=== PATIENT | female | born 1980 | race Caucasian/White ===

== ENCOUNTER → 2018-10-18 | Day surgery (SDC) | payer OTHER ==
--- NOTE | 2018-10-19 07:35 | OP ---
DATE OF OPERATION: 10/18/2018 PREOPERATIVE DIAGNOSIS: Abnormal right mammography, POSTOPERATIVE DIAGNOSIS: Abnormal right mammography. PROCEDURE: Right stereotactic needle biopsy with clips. SURGEON: Rosalia Villaseñor MD ANESTHESIA: Local. COMPLICATIONS: None. This was a sterile procedure. INDICATIONS FOR PROCEDURE: Patient presented for a screening mammography that noted clusters of microcalcifications slightly superior and posterior to a clip done for an ultrasound-guided needle biopsy in the 9 o'clock location 4 cm from the nipple that was a fibroadenoma. A biopsy of the calcifications was recommended by the radiologist. I reviewed the images and agreed. The procedure of a right stereotactic needle biopsy with clip was discussed and all her questions answered. PROCEDURE IN DETAIL: Patient was brought to [facility] in [place], laid prone on the [place] table. Using the lateral approach, the clip from the prior biopsy was identified. The only calcifications I could really identify was slightly inferior to this, and despite several attempts, no other calcifications were seen. As this appeared to be in the similar area where the calcifications were seen by the radiologist, I elected to do the biopsy of this. A sterile prep was obtained. A target was chosen, there was a positive stroke margin. Using betadine and 1% lidocaine, a 9-gauge Suros device was used to take several cores from this area. Cores showed the calcifications within them. These were handled with usual calcification protocol. A O-shaped clip was deployed in the area. Hemostasis showed with direct pressure. Incision was closed with Steri-Strips. She tolerated the procedure well and left the breast imaging center in good condition. ROSALIA VILLASEÑOR M.D. [id number]
--- NOTE | 2018-10-19 12:49 | PATH ---
Surgical Pathology Report Patient Name: SHANTI COREA [facility]. Rec. #: [id number] /Age/Gender: 1980 (Age: 38) / F Account: [id number] Location: [facility] Taken: 10/18/2018 Received: 10/18/2018 Reported: 10/19/2018 Physicians: Rosalia Stratton M.D. Specimen(s) Received A: RIGHT BREAST SPECIMEN WITH CALCIFICATIONS B: RIGHT BREAST SPECIMEN WITHOUT CALCIFICATIONS Clinical History Mammographic findings: Microcalcification, suspicious Final Diagnosis A. BREAST, RIGHT, WITH CALCIFICATIONS, STEREOTACTIC BIOPSY: BENIGN BREAST TISSUE SHOWING FIBROCYSTIC CHANGES INCLUDING CYSTIC APOCRINE METAPLASIA AND STROMAL FIBROSIS. CALCIFICATIONS ARE PRESENT IN ASSOCIATION WITH CYST CONTENTS. B. BREAST, RIGHT, WITHOUT CALCIFICATIONS, STEREOTACTIC BIOPSY: BENIGN BREAST TISSUE SHOWING FIBROCYSTIC CHANGES INCLUDING CYSTIC APOCRINE METAPLASIA AND STROMAL FIBROSIS. Electronically Signed Meliza Do M.D. Gross Description A. Received in formalin labeled "right breast with calcifications," are 4 marquez-yellow, cylindrical portions of fibroadipose tissue ranging from 0.9-3.4 cm in length and averaging 0.4 cm in diameter. The specimens are submitted in toto in one cassette. B. Received in formalin labeled "right breast without calcifications," are 4 marquez-yellow, cylindrical portions of fibroadipose tissue ranging from 0.7-3.8 cm in length and averaging 0.4 cm in diameter. The specimens are submitted in toto in one cassette. Time to formalin fixation: 5 minutes Total formalin fixation time: Approximately 7 hours. 10/18/201810/18/2018
== END | disposition home or self-care (01) ==
LOC: FMAMMOTONE 09:47
PROVIDERS: ATTEND Surgery
PROC: 0HBT3ZX Excision of Right Breast, Percutaneous Approach, Diagnostic (ICD-10-PCS; principal; 2018-10-18)
DX: N60.11 Diffuse cystic mastopathy of right breast (principal); N60.31 Fibrosclerosis of right breast; R92.1 Mammographic calcification found on diagnostic imaging of breast
CPT/HCPCS: 19081; 87899; 88305-TC; A4648